=== PATIENT | male | born 1970 | race Caucasian/White ===

== ENCOUNTER 2022-11-01 13:13 | Inpatient (IN) | payer SELFPAY ==
[2022-11-01] MEDS ORDERED: TDAP (DIPHTH,PERTUSS(ACELL),TET VAC) 0.5 ML VIAL IMVAC ONE (13:56)
[2022-11-01] MEDS ORDERED: CEFAZOLIN SODIUM 1 GM/VIAL ONE (13:56)
[2022-11-01] MEDS ORDERED: NA CHLORIDE 0.9% 100 ML ONE (13:57)
[2022-11-01 15:26] LABS: Absolute Lymphocytes (CBC) 1.2 K/uL (0.7-4.9); Hematocrit 42.9 % (39.6-49.0); Lymphocytes % 6.4 % (15.3-44.8); MCV 94.6 fL (80-100); MPV 7.2 fL (7.6-11.3); RBC Red Blood Cell Count 4.54 M/uL (4.33-5.43)
[2022-11-01 15:29] LABS: Protime INR 1.08
[2022-11-01 15:52] LABS: ALT/SGPT 55 U/L (16-61); AST/SGOT 76 U/L (15-37); Albumin 4.1 g/dL (3.4-5.0); Alkaline Phosphatase 120 U/L (45-117); BUN Blood Urea Nitrogen 31 mg/dL (7-18); Bicarbonate 22 mEq/L (21-32); Bilirubin Direct 0.2 mg/dL (0-0.2); Bilirubin Total 0.6 mg/dL (0.2-1.0); Creatine Phosphokinase 2154 U/L (39-308); Glomerular Filtration Rate 43 ml/min (=/>90); Glucose Level 133 mg/dL (74-106); Potassium 3.4 mEq/L (3.5-5.1); Protein, Total 7.6 g/dL (6.4-8.2); Sodium Level 136 mEq/L (136-145)
[2022-11-01] MEDS ORDERED: NA CHLORIDE 0.9% 2,000 ML ONE (16:36)
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
--- NOTE | 2022-11-01 17:13 | RAD REPORT ---
EXAM DESCRIPTION: RAD - Tib Fib Left - 11/01/2022 3:43 pm CLINICAL HISTORY: ANIMAL BITE COMPARISON: No comparisons TECHNIQUE: Left tibia and fibula, 2 views. FINDINGS: No fracture is identified. There is no dislocation or periosteal reaction noted. Soft tissue swelling most pronounced along the dorsal distal lower leg, with soft tissue irregularity and limited soft tissue gas. IMPRESSION: Soft tissue swelling, irregularity and limited soft tissue gas dorsally. No evidence of acute osseus abnormality. .
[2022-11-01] MEDS ORDERED: propofoL 200 MG/20 ML VIAL IV ONE (17:57)
[2022-11-01] MEDS ORDERED: LIDOCAINE 1% 20 ML MDV ONE (18:08)
[2022-11-01] MEDS ORDERED: ONDANSETRON 4 MG/2 ML VIAL IV PRN (18:13)
[2022-11-01] MEDS ORDERED: ACETAMINOPHEN 500 MG TAB PO PRN (18:13)
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
[2022-11-01] MEDS ORDERED: FENTANYL CITR 100 MCG/2 ML ONE (18:21)
[2022-11-01] MEDS ORDERED: MIDAZOLAM HCL 2 MG/2 ML INJ ONE (18:21)
[2022-11-01 18:43] LABS: Transitional Epithelial <5 /HPF (None Seen); Urine Bacteria None Seen /HPF (<20); Urine Bilirubin NEGATIVE (Negative); Urine Blood 3+ (Negative); Urine Clarity Clear (Clear); Urine Color Light-Yellow (Yellow); Urine Glucose NEGATIVE (Negative); Urine Protein TRACE (Negative); Urine RBC <5 /HPF (None Seen); Urine Sperm Present (None Seen); Urine Urobilinogen Normal (Normal); Urine pH 5.5 (5.0-7.0)
--- NOTE | 2022-11-01 18:59 | P.OP ---
Preoperative diagnosis: LEFT lower Extremity Dog Bite - Calf Region Postoperative diagnosis: LEFT lower Extremity Dog Bite - Calf Region Primary procedure: Debridement and Washout of LEFT lower Extremity Dog Bite - Calf Region Anesthesia: GETA Estimated blood loss: <10cc Specimen: Debridement Tissue Findings: Puncture, Transection of muslces / tendons Complications: None Transferred to: Recovery Room Condition: Good
[2022-11-01 19:08] LABS: Barbiturates NEGATIVE (NEGATIVE); Benzodiazepines POSITIVE (NEGATIVE); Cocaine NEGATIVE (NEGATIVE); METHAMPHETAM POSITIVE (NEGATIVE); Methadone NEGATIVE (NEGATIVE); Opiates NEGATIVE (NEGATIVE); Phencyclidine NEGATIVE (NEGATIVE); THC Cannibis NEGATIVE (NEGATIVE)
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
[2022-11-01] MEDS: NA CHLORIDE 0.9% 1,000 ML IV SCH (20:34)
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
[2022-11-02] MEDS: CEFAZOLIN SODIUM 2 GM in NA CHLORIDE 0.9% 100 ML IVPB SCH ×2 (00:11→08:35)
[2022-11-02] MEDS: AMPICILLIN/SULBACT 3 GM in NA CHLORIDE 0.9% 100 ML IVPB SCH ×3 (00:46→16:10)
[2022-11-02] MEDS: NA CHLORIDE 0.9% 1,000 ML IV SCH ×2 (03:10→08:37)
[2022-11-02 05:13] LABS: Absolute Lymphocytes (CBC) 1.4 K/uL (0.7-4.9); Hematocrit 41.5 % (39.6-49.0); MCV 95.3 fL (80-100); MPV 7.2 fL (7.6-11.3); RBC Red Blood Cell Count 4.36 M/uL (4.33-5.43)
[2022-11-02 06:04] LABS: Magnesium 2.8 mg/dL (1.6-2.4); Phosphorus 4.2 mg/dL (2.5-4.9); Potassium 3.7 mEq/L (3.5-5.1)
[2022-11-02] MEDS: ENOXAPARIN 40 MG/0.4 ML SQ SCH (08:35)
[2022-11-02] MEDS: NACHLORIDE 0.45% 1,000 ML with NA BICARB 8.4% 75 MEQ IV SCH ×6 (11:32→22:08)
[2022-11-02] MEDS: ACETYLCYST 20% 800 MG/4 ML VIAL PO SCH ×2 (11:33→20:32)
[2022-11-02] MEDS: KCL 20 MEQ/100 mL IVPB 20 MEQ/100 ML BAG IV SCH ×2 (11:33→13:31)
--- NOTE | 2022-11-02 12:27 | P.PN ---
Subjective Date of Service: 11/02/22 Chief Complaint: traumatic left leg wound, rhabdomyolysis Patient would not give any subjective complaint or say anything during my interaction. CK level elevated, creatinine trended. Patient has been afebrile. Physical Examination - Vital Signs Temperature: 97.7 F Blood Pressure: 131/79 Pulse: 97 Respirations: 17 Pulse Ox (%): 100 - Physical Exam General: Alert, In no apparent distress, Other (Awake) HEENT: Mucous membr. moist/pink Neck: JVD not distended Respiratory: Clear to auscultation bilaterally, Normal air movement Cardiovascular: No edema, Regular rate/rhythm, Normal S1 S2 Gastrointestinal: Soft and benign, Non-distended Musculoskeletal: Other (Left leg dog bite wound in dressed and Layo wrap.) Neurological: Normal strength at 5/5 x4 extr - Studies Laboratory Data (last 24 hrs) 11/01/22 15:00: PT 11.9, INR 1.08, APTT 29.0 11/01/22 15:00: WBC 18.90 H, Hgb 14.6, Hct 42.9, Plt Count 403 11/01/22 15:00: Sodium 136, Potassium 3.4 L, BUN 31 H, Creatinine 1.88 H, Glucose 133 H, Total Bilirubin 0.6, AST 76 H, ALT 55, Alkaline Phosphatase 120 H Assessment And Plan - Current Problems (Diagnosis) (1) CLAU (acute kidney injury) Current Visit: Yes Status: Acute (2) Rhabdomyolysis Current Visit: Yes Status: Acute Qualifiers: Rhabdomyolysis type: traumatic Encounter type: initial encounter Qualified Code(s): T79.6XXA - Traumatic ischemia of muscle, initial encounter (3) Traumatic open wound of left lower leg Current Visit: Yes Status: Acute Qualifiers: Encounter type: initial encounter Qualified Code(s): S81.802A - Unspecified open wound, left lower leg, initial encounter - Plan Status post irrigation and debridement of dog bite wound by Dr. Mccain. Unasyn Pain medication as needed Nephrology consulted for CLAU. IV fluid rate increased to 200 ml per hour. Monitor CK levels daily Monitor renal function. Follow cultures.
[2022-11-02 13:32] LABS: Urine Protein/Creatinine Ratio 0.3 ratio (<0.15)
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
[2022-11-03] MEDS: AMPICILLIN/SULBACT 3 GM in NA CHLORIDE 0.9% 100 ML IVPB SCH ×3 (00:09→16:57)
[2022-11-03 01:40] LABS: Urine Bacteria None Seen /HPF (<20); Urine Bilirubin NEGATIVE (Negative); Urine Blood Trace (Negative); Urine Clarity Clear (Clear); Urine Color Colorless (Yellow); Urine Glucose NEGATIVE (Negative); Urine Protein NEGATIVE (Negative); Urine RBC <5 /HPF (None Seen); Urine Urobilinogen Normal (Normal); Urine pH 6.5 (5.0-7.0)
[2022-11-03] MEDS: NACHLORIDE 0.45% 1,000 ML with NA BICARB 8.4% 75 MEQ IV SCH ×8 (03:16→19:50)
[2022-11-03 05:06] LABS: Absolute Lymphocytes (CBC) 2.1 K/uL (0.7-4.9); Hematocrit 37.4 % (39.6-49.0); Lymphocytes % 20.1 % (15.3-44.8); MCV 95.4 fL (80-100); MPV 7.2 fL (7.6-11.3); RBC Red Blood Cell Count 3.92 M/uL (4.33-5.43)
[2022-11-03 05:38] VITALS: BMI 29.8
[2022-11-03 05:40] LABS: Albumin 2.8 g/dL (3.4-5.0); Magnesium 2.5 mg/dL (1.6-2.4); Phosphorus 2.3 mg/dL (2.5-4.9); Potassium 3.2 mEq/L (3.5-5.1); Thyroid Stimulating Hormone 0.439 uIU/mL (0.358-3.740)
[2022-11-03] MEDS: KCL 20 MEQ/100 mL IVPB 20 MEQ/100 ML BAG IV SCH ×2 (07:56→10:38)
[2022-11-03] MEDS: ENOXAPARIN 40 MG/0.4 ML SQ SCH (07:56)
[2022-11-03] MEDS ORDERED: POTASSIUM 25 MEQ EFFERV TAB PO ONE (08:00)
--- NOTE | 2022-11-03 11:37 | P.PN ---
Subjective Date of Service: 11/03/22 Chief Complaint: traumatic left leg wound, rhabdomyolysis Patient is more responsive today. He he was sitting up and eating his breakfast during my interaction today CK level trended down. creatinine trended down. Patient has no new complaints. He denies pain. Physical Examination - Vital Signs Temperature: 97.2 F Blood Pressure: 106/78 Pulse: 78 Respirations: 17 Pulse Ox (%): 100 - Physical Exam General: Alert, In no apparent distress, Oriented x3 HEENT: Mucous membr. moist/pink Neck: JVD not distended Respiratory: Clear to auscultation bilaterally, Normal air movement Gastrointestinal: Normal bowel sounds, Soft and benign, Non-distended, No tenderness Musculoskeletal: No swelling Integumentary: Other (Dressed left calf wound.) Neurological: Normal strength at 5/5 x4 extr Assessment And Plan - Current Problems (Diagnosis) (1) CLAU (acute kidney injury) Current Visit: Yes Status: Acute (2) Rhabdomyolysis Current Visit: Yes Status: Acute Qualifiers: Rhabdomyolysis type: traumatic Encounter type: initial encounter Qualified Code(s): T79.6XXA - Traumatic ischemia of muscle, initial encounter (3) Traumatic open wound of left lower leg Current Visit: Yes Status: Acute Qualifiers: Encounter type: initial encounter Qualified Code(s): S81.802A - Unspecified open wound, left lower leg, initial encounter - Plan Status post irrigation and debridement of dog bite wound by Dr. Mccain. Leukocytosis resolved Continue IV Unasyn. Will transition to Augmentin on discharge. Pain medication as needed Nephrology consulted for CLAU. CLAU significantly improved, renal function also improved Nephrology is following and managing IV fluid, CLAU and rhabdomyolysis Monitor CK levels daily Monitor renal function. Cultures: No growth. Anticipating discharge in a.m.
[2022-11-03 17:44] LABS: Magnesium 2.3 mg/dL (1.6-2.4); Phosphorus 2.8 mg/dL (2.5-4.9); Potassium 3.8 mEq/L (3.5-5.1)
[2022-11-03] MEDS ORDERED: POTASS/SODIUM PHOSPHATE 1 PKT POWD.PACK PO ONE (21:00)
[2022-11-04] MEDS: AMPICILLIN/SULBACT 3 GM in NA CHLORIDE 0.9% 100 ML IVPB SCH ×2 (00:36→09:22)
[2022-11-04] MEDS: NACHLORIDE 0.45% 1,000 ML with NA BICARB 8.4% 75 MEQ IV SCH ×4 (01:41→08:30)
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
[2022-11-04 05:11] LABS: Absolute Lymphocytes (CBC) 2.5 K/uL (0.7-4.9); Hematocrit 36.9 % (39.6-49.0); Lymphocytes % 29.8 % (15.3-44.8); MCV 96.7 fL (80-100); MPV 7.6 fL (7.6-11.3); RBC Red Blood Cell Count 3.82 M/uL (4.33-5.43)
[2022-11-04 05:29] LABS: Albumin 2.6 g/dL (3.4-5.0); Phosphorus 2.5 mg/dL (2.5-4.9); Potassium 3.5 mEq/L (3.5-5.1)
--- NOTE | 2022-11-04 08:00 | EKG ---
Test Date: 2022-11-01 Test Time: 15:08:53 Track Laborer: TOMEKA MEASUREMENT RESULTS: Intervals: Rate: 117 LA: 148 QRSD: 82 QT: 338 QTc: 471 Jayess: P: 48 LA: 148 QRS: 57 T: 48 INTERPRETIVE STATEMENTS: Sinus tachycardia Otherwise normal ECG No previous ECG available for comparison Electronically Signed On 11-04-22 07:53:54 CDT by Alo Nava
[2022-11-04] MEDS: POTASS/SODIUM PHOSPHATE 1 PKT POWD.PACK PO SCH (08:28)
[2022-11-04] MEDS: ENOXAPARIN 40 MG/0.4 ML SQ SCH (08:29)
--- NOTE | 2022-11-04 10:26 | P.PN ---
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 Mccain. Leukocytosis resolved Cultures: No growth Continue IV Unasyn. Transition to Augmentin on discharge Pain medication as needed Rhabdo / elevated CPK Nephrology consulted CLAU significantly improved, renal function also improved on bicarb drip renal function normalized now, dc bicarb drip 11/04 repeat labs in AM VTE: Lovenox Code: Full Dispo: Home ~24hrs pending labs / stable
[2022-11-04 10:40] VITALS: O2SAT 95
--- NOTE | 2022-11-04 13:01 | PN ---
Date of Progress Note: 11/04/2022 Subjective: The patient was admitted with rhabdo, acute kidney injury secondary to rhabdo and prerenal/drug abuse. The patient was started on hydration with bicarb drip. Kidney function has been normalized. Physical Examination: Vital Signs: Blood pressure 116/64, pulse of 70, afebrile. The patient had good urine output of 2200, positive of 500. Chest: Clear to auscultation. Heart: S1, S2. Regular. Abdomen: Soft, nontender. Extremity: No edema. Dressing on both legs. Neurologic: Alert. No focality. Laboratory Data: Hemoglobin 12.2. Sodium 139, potassium 3.5, bicarb 29, BUN 10, creatinine 1, GFR of 89, calcium 8.2, phosphorus 2.5, magnesium 2. CK of 1800, albumin 2.6. Current Medications: The patient on include; 1. Lovenox. 2. Augmentin. 3. Bicarb drip. 4. KCl. Assessment And Plan: 1. Acute kidney injury secondary to prerenal/rhabdomyolysis, recovered, resolved. I am going to go ahead and discontinue bicarb drip. 2. Hypokalemia, hypophosphatemia. We will supplement. 3. Rhabdomyolysis, recovering. Discontinue IV fluid. We will encourage oral hydration. 4. Drugs abuse as by primary. 5. Cellulitis with dog bite. Continue current antibiotic dose appropriate. We will follow up with primary. time spend exam the patient face to face , reviewing the DATA lab and Radiology, placing the order, discussing the case with the patient ,reviewing the care plan with presentation team member including the nursing staff , discussing with the hospitalist >35 min HELEN Voice ID: [id number] Report ID: [id number] CONRAD
[2022-11-04] MEDS: AMOX/K CLAV 875 MG TAB PO SCH (20:24)
[2022-11-04] MEDS: HYDROCODONE/APAP 5/325 MG TAB PO PRN (20:24)
--- NOTE | 2022-11-05 07:20 | P.PN ---
Date of Service: 11/05/22 Subjective: ROS: 10 point ROS as noted above, otherwise negative Physical Exam: GEN: Alert, oriented, NAD HEENT: Normal conjunctiva, sclera anicteric CV: Regular rate and rhythm, no edema Pulm: Nonlabored respirations on room air ABD: Soft, nontender, nondistended Integumentary: Dressing in place - left calf; swelling L>R Neuro: Normal speech, normal affect vitals reviewed Problem List: Rhabdomyolysis / elevated CPK Traumatic open wound of lower left leg CLAU s/p I&D of dog bite wound by Dr. Mccain. Leukocytosis resolved Cultures: No growth Continue IV Unasyn. Transition to Augmentin on discharge Pain medication as needed Rhabdo / elevated CPK Nephrology consulted CLAU significantly improved, renal function also improved on bicarb drip renal function normalized now, dc bicarb drip 11/04 repeat labs in AM VTE: Lovenox Code: Full Dispo: Home ~24hrs pending labs / stable
[2022-11-05 07:43] LABS: Magnesium 1.9 mg/dL (1.6-2.4); Potassium 3.6 mEq/L (3.5-5.1)
[2022-11-05] MEDS: AMOX/K CLAV 875 MG TAB PO SCH (07:50)
[2022-11-05] MEDS: POTASS/SODIUM PHOSPHATE 1 PKT POWD.PACK PO SCH (07:50)
[2022-11-05] MEDS: ENOXAPARIN 40 MG/0.4 ML SQ SCH (07:50)
[2022-11-05] MEDS: HYDROCODONE/APAP 5/325 MG TAB PO PRN (07:50)
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
[2022-11-05 13:06] VITALS: BP 129/74; TEMP 98.6
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
== END 2022-11-05 12:40 | disposition home or self-care (01) | DRG 571 ==
LOC: ER 13:13 → ERHOLD 18:11 → 3RD-ICU 19:36 → 2ND 11-03 21:21
PROVIDERS: ADMIT Internal Medicine; ATTEND Hospitalist
PROC: 0JBP0ZZ Excision of Left Lower Leg Subcutaneous Tissue and Fascia, Open Approach (ICD-10-PCS; principal; 2022-11-01 17:00)
DX: S81.802A Unspecified open wound, left lower leg, initial encounter (principal); L03.90 Cellulitis, unspecified; N17.9 Acute kidney failure, unspecified; T79.6XXA Traumatic ischemia of muscle, initial encounter; S91.052A Open bite, left ankle, initial encounter; S29.9XXA Unspecified injury of thorax, initial encounter; S40.812A Abrasion of left upper arm, initial encounter; S80.812A Abrasion, left lower leg, initial encounter; S01.81XA Laceration without foreign body of other part of head, initial encounter; E87.6 Hypokalemia; E83.39 Other disorders of phosphorus metabolism; M48.56XD Collapsed vertebra, not elsewhere classified, lumbar region, subsequent encounter for fracture with routine healing; M48.54XD Collapsed vertebra, not elsewhere classified, thoracic region, subsequent encounter for fracture with routine healing; E86.0 Dehydration; Z91.199 Patient's noncompliance with other medical treatment and regimen due to unspecified reason; W54.0XXA Bitten by dog, initial encounter; Y93.9 Activity, unspecified; Y92.9 Unspecified place or not applicable
CPT/HCPCS: 36415; 70450; 71250; 72125; 80048; 80061; 80069; 80076; 80307; 81001; 82550; 82570; 83735; 83970; 84100; 84156; 84443; 84484; 85025; 85610; 85730; 87040; 88304; 93005; 96365; 96372; 99285; G0480; J0295; J0690; J1650; J2001; J2250; J2704; J3010; J3480; J7030